=== PATIENT | female | born 1970 | race Caucasian/White ===

== ENCOUNTER → 2025-05-02 06:48 | Outpatient (REF) | payer OTHER, SELFPAY | LOC: HWRAD 06:48 | PROVIDERS: ATTENDING PHYSICIAN Physician Assistant | DX: M25.552 Pain in left hip (principal); S46.912A Strain of unspecified muscle, fascia and tendon at shoulder and upper arm level, left arm, initial encounter | CPT/HCPCS: 73030; 73502 ==

== ENCOUNTER → 2025-06-19 06:30 | Outpatient (REF) | payer OTHER, SELFPAY | LOC: HWWDC 06:30 | PROVIDERS: ATTENDING PHYSICIAN Physician Assistant | DX: Z12.31 Encounter for screening mammogram for malignant neoplasm of breast (principal) | CPT/HCPCS: 77063; 77067 ==

== ENCOUNTER → 2025-07-08 08:36 | Outpatient (REF) | payer OTHER, SELFPAY | LOC: WDC 08:36 | PROVIDERS: ATTENDING PHYSICIAN Physician Assistant | DX: R92.8 Other abnormal and inconclusive findings on diagnostic imaging of breast (principal) | CPT/HCPCS: 76642 ==

== ENCOUNTER → 2025-09-28 09:09 | Outpatient (REF) | payer OTHER, SELFPAY | LOC: PAVMRI 09:09 | PROVIDERS: ATTENDING PHYSICIAN Physician Assistant | DX: M16.12 Unilateral primary osteoarthritis, left hip (principal) | CPT/HCPCS: 73721 ==